=== PATIENT | female | born 1955 | race African-American/Black ===

== ENCOUNTER 2022-05-06 13:32 | Emergency (ER) | payer OTHER ==
[~2022-05-06] VITALS: Ht 172.7 cm; Wt 80.0 kg
[2022-05-06] MEDS ORDERED: ATOR40TA70 PO (14:09)
[2022-05-06] MEDS ORDERED: BENA10TA74 PO (14:09)
[2022-05-06] MEDS ORDERED: ZOLP-245 (14:09)
[2022-05-06] MEDS ORDERED: MAGNESIUM/ALUMINUM HYDROXIDE/SIMETHICONE 30ML UDC PO STA (14:34)
[2022-05-06] MEDS ORDERED: VISCOUS LIDOCAINE 2% 15 ML UDC PO STA (14:34)
[2022-05-06 15:08] LABS: CHLORIDE 112 mEq/L (98-107)
[2022-05-06 15:23] LABS: BASOPHILS % 0.6 % (0.0-2.0); HEMATOCRIT. 38.6 % (36.0-48.0); HEMOGLOBIN. 12.8 g/dL (12.0-16.0); LYMPHOCYTES % 29.9 % (20.0-50.0); MEAN CORPUSCULAR HEMOGLOBIN 30.2 pg (28.0-32.0); MEAN CORPUSCULAR VOLUME 90.6 fL (81.0-99.0); MEAN PLATELET VOLUME 10.2 fl (7.4-10.4); MONOCYTES % 3.5 % (2.0-8.0); PLATELET 197 x1000/uL (130-400); RED BLOOD CELL COUNT 4.26 mill/uL (4.2-5.4); RED CELL DISTRIBUTION WIDTH 13.7 % (11.6-14.6)
[2022-05-06] MEDS ORDERED: BENAZEPRIL 5MG TABLET PO ONE (16:30)
[2022-05-06 17:58] VITALS: BP 189/73
== END 2022-05-06 17:59 | disposition home or self-care (01) ==
LOC: ER 14:37
DX: T50.901A Poisoning by unspecified drugs, medicaments and biological substances, accidental (unintentional), initial encounter (principal); Y92.9 Unspecified place or not applicable
CPT/HCPCS: 36415; 71045; 80053; 85025; 99284